=== PATIENT | female | born 1965 | race Caucasian/White ===

== ENCOUNTER 2017-10-27 10:13 | Emergency (ER) | payer OTHER ==
[~2017-10-27 10:13] MED LIST: LORA-474 PO; PREM0.622 PO; PROM25SU8 PO; PROZ40CA PO
[2017-10-27 11:15] VITALS: BP 153/67; PULSE 84; RESP 16; TEMP 97.7; O2SAT 98
[2017-10-27 11:45] LABS: AUTOMATED NEUTROPHIL # 3.6 TH/MM3 (1.8-7.7); BASOPHIL % 0.8 % (0.0-2.0); EOSINOPHIL # 0.1 TH/MM3 (0-0.4); EOSINOPHIL % 1.5 % (0.0-4.0); HEMATOCRIT 39.8 % (35.0-46.0); HEMOGLOBIN 13.6 GM/DL (11.6-15.3); LYMPHOCYTE # 1.5 TH/MM3 (1.0-4.8); MEAN CELL VOLUME 90.6 FL (80.0-100.0); MEAN CORPUSCULAR HEMOGLOBIN 30.9 PG (27.0-34.0); MEAN CORPUSCULAR HGB CONC 34.1 % (32.0-36.0); MEAN PLATELET VOLUME 7.9 FL (7.0-11.0); MONO % 4.1 % (0.0-8.0); MONOCYTE # 0.2 TH/MM3 (0-0.9); NEUT % 65.6 % (16.0-70.0); PLATELET COUNT 367 TH/MM3 (150-450); RED BLOOD COUNT 4.39 MIL/MM3 (4.00-5.30); WHITE BLOOD COUNT 5.4 TH/MM3 (4.0-11.0)
[2017-10-27 11:56] LABS: PROTHROMBIN TIME - PATIENT 10.4 SEC (9.8-11.6)
[2017-10-27] MEDS ORDERED: SODIUM CHLOR 0.9% 1000 ML INJ 1,000 ML IV SCH (12:00)
[2017-10-27] MEDS ORDERED: HYDROmorphone HCL PF 2 MG/ML VIAL IV PUSH ONE ×2 (12:00→13:45)
[2017-10-27] MEDS ORDERED: ONDANSETRON HCL 4 MG/2 ML VIAL IV PUSH ONE (12:00)
[2017-10-27 12:02] LABS: BACTERIA, URINE FEW /hpf; BILIRUBIN, URINE NEG (NEG); BLOOD, URINE NEG (NEG); GLUCOSE,URINE NEG (NEG); KETONE, URINE 40 mg/dL (NEG); MUCUS URINE FEW /lpf (OCC); NITRITE,URINE NEG (NEG); PH, URINE 5.5 (5.0-8.5); SQUAMOUS EPITHELIAL CELL URINE 2 /hpf (0-5); URINE COLOR YELLOW (YELLW/STRAW); URINE LEUKOCYTE ESTERASE NEG (NEG)
--- NOTE | 2017-10-27 12:02 | PD ---
HPI Chief Complaint: Abdominal Pain Time Seen by Provider: 11:50 Travel History International Travel<30 days: No Contact w/Intl Traveler<30days: No Traveled to known affect area: No History of Present Illness HPI 52-year-old female complains up fever, left lower quadrant abdominal pain, nausea vomiting diarrhea. Patient has history of diverticulitis in the past. Patient states that she started having abdominal pain 4 days ago. Patient stated the pain is sharp pain localized left lower quadrant of the abdomen. Patient denies any pain radiation. Patient states that she is having fever for the past 2 days. Patient denies any dysuria frequency. Patient denies any vaginal discharge or bleeding. Patient status post hysterectomy and appendectomy. On a scale of 1-10 the pain is an 8. PFSH Past Medical History Anxiety: Yes Depression: Yes Cardiovascular Problems: Yes Diminished Hearing: No Diverticulitis: Yes GERD: Yes Genitourinary: Yes (INTERSTITIAL CYSTITIS ) Hypertension: Yes Medical other: Yes (CHRONIC PAIN) Ulcer: Yes Tetanus Vaccination: < 5 Years Influenza Vaccination: Yes ?: Not Menopausal: Yes Past Surgical History Appendectomy: Yes Gynecologic Surgery: Yes (MULTIPLE LAPORASCOPIC SURGERIES FOR ENDOMETRIOSIS PRIOR TO HYST) Hysterectomy: Yes (PARTIAL / TOTAL) Social History Alcohol Use: Yes (OCCASIONALLY) Tobacco Use: No Substance Use: No Allergies-Medications (Allergen,Severity, Reaction): Coded Allergies: diatrizoate meglumine (Unverified Allergy, Severe, ANAPHYLASIS, 10/27/17) gadobenic acid (Unverified Allergy, Severe, ANAPHYLASIS, 10/27/17) gadodiamide (Unverified Allergy, Severe, ANAPHYLASIS, 10/27/17) gadoteridol (Unverified Allergy, Severe, ANAPHYLASIS, 10/27/17) iodixanol (Unverified Allergy, Severe, ANAPHYLASIS, 10/27/17) iohexol (Unverified Allergy, Severe, ANAPHYLASIS, 10/27/17) moxifloxacin (Verified Allergy, Severe, Seizures, 10/27/17) penicillin G (Unverified Allergy, Severe, HIVES, 10/27/17) triamcinolone (Verified Allergy, Severe, Burning, 10/27/17) adhesive (Verified Allergy, Intermediate, Itching, 10/27/17) morphine (Unverified Allergy, Intermediate, HIVES, 10/27/17) metoclopramide (Unverified Allergy, Mild, NERVOUSNESS, 10/27/17) prochlorperazine (Unverified Allergy, Mild, NERVOUSNESS, 10/27/17) promethazine (Unverified Allergy, Mild, VOMITING, 10/27/17) Iodinated Contrast- Oral and IV Dye (Verified Allergy, Unknown, 10/27/17) ketorolac (Verified Allergy, Unknown, 10/27/17) Reported Meds & Prescriptions Reported Meds & Active Scripts Active Reported Percocet (Oxycodone-Acetaminophen) 10-325 mg Tab 1 Tab PO Q6H PRN Lexapro (Escitalopram Oxalate) 20 Mg Tab 20 Mg PO DAILY Nexium (Esomeprazole DR) 40 Mg Capdr 40 Mg PO DAILY Ativan (Lorazepam) 1 Mg Tab 1 Mg PO Q8H PRN Premarin (Estrogens Conjugated) 0.625 Mg Tab 0.625 Mg PO DAILY Cardizem CD 24 HR (Diltiazem CD 24 HR) 120 Mg Caper 120 Mg PO DAILY Review of Systems General / Constitutional: No: Fever Eyes: No: Visual changes HENT: No: Headaches Cardiovascular: No: Chest Pain or Discomfort Respiratory: No: Shortness of Breath Gastrointestinal: Positive: Nausea, Vomiting, Diarrhea, Abdominal Pain Genitourinary: No: Dysuria Musculoskeletal: No: Pain Skin: No Rash Neurologic: No: Weakness Psychiatric: No: Depression Endocrine: No: Polydipsia Hematologic/Lymphatic: No: Easy Bruising Physical Exam Narrative GENERAL: Well-nourished, well-developed patient. SKIN: Focused skin assessment warm/dry. HEAD: Normocephalic. EYES: No scleral icterus. No injection or drainage. NECK: Supple, trachea midline. No JVD or lymphadenopathy. CARDIOVASCULAR: Regular rate and rhythm without murmurs, gallops, or rubs. RESPIRATORY: Breath sounds equal bilaterally. No accessory muscle use. GASTROINTESTINAL: Abdomen soft, nondistended. Patient has moderate tenderness on palpation on the left lower quadrant of the abdomen. No rebound tenderness. No mass. MUSCULOSKELETAL: No cyanosis, or edema. BACK: Nontender without obvious deformity. No CVA tenderness. Neurologic exam normal. Data Data Last Documented VS Vital Signs Date Time Temp Pulse Resp B/P (MAP) Pulse Ox O2 Delivery O2 Flow Rate FiO2 10/27/17 11:15 97.7 84 16 153/67 (95) 98 Orders Orders Complete Blood Count With Diff (10/27/17 11:18) Comprehensive Metabolic Panel (10/27/17 11:18) Lipase (10/27/17 11:18) Prothrombin Time / Inr (Pt) (10/27/17 11:18) Act Partial Throm Time (Ptt) (10/27/17 11:18) Urinalysis - C+S If Indicated (10/27/17 11:18) Ed Urine Pregnancytest Poc (10/27/17 11:18) Sodium Chlor 0.9% 1000 Ml Inj (Ns 1000 M (10/27/17 12:00) Hydromorphone Pf Inj (Dilaudid Pf Inj) (10/27/17 12:00) Ondansetron Inj (Zofran Inj) (10/27/17 12:00) Iv Access Insert/Monitor (10/27/17 11:58) Ct Abd/Pel W/O Iv Contrast (10/27/17 13:32) Hydromorphone Pf Inj (Dilaudid Pf Inj) (10/27/17 13:45) Labs Laboratory Tests Test 10/27/17 11:27 White Blood Count 5.4 TH/MM3 Red Blood Count 4.39 MIL/MM3 Hemoglobin 13.6 GM/DL Hematocrit 39.8 % Mean Corpuscular Volume 90.6 FL Mean Corpuscular Hemoglobin 30.9 PG Mean Corpuscular Hemoglobin Concent 34.1 % Red Cell Distribution Width 13.0 % Platelet Count 367 TH/MM3 Mean Platelet Volume 7.9 FL Neutrophils (%) (Auto) 65.6 % Lymphocytes (%) (Auto) 28.0 % Monocytes (%) (Auto) 4.1 % Eosinophils (%) (Auto) 1.5 % Basophils (%) (Auto) 0.8 % Neutrophils # (Auto) 3.6 TH/MM3 Lymphocytes # (Auto) 1.5 TH/MM3 Monocytes # (Auto) 0.2 TH/MM3 Eosinophils # (Auto) 0.1 TH/MM3 Basophils # (Auto) 0.0 TH/MM3 CBC Comment DIFF FINAL Differential Comment Prothrombin Time 10.4 SEC Prothromb Time International Ratio 1.0 RATIO Activated Partial Thromboplast Time 28.3 SEC Urine Color YELLOW Urine Turbidity HAZY Urine pH 5.5 Urine Specific [place] 1.025 Urine Protein TRACE mg/dL Urine Glucose (UA) NEG mg/dL Urine Ketones 40 mg/dL Urine Occult Blood NEG Urine Nitrite NEG Urine Bilirubin NEG Urine Urobilinogen LESS THAN 2.0 MG/DL Urine Leukocyte Esterase NEG Urine RBC 2 /hpf Urine WBC 2 /hpf Urine Squamous Epithelial Cells 2 /hpf Urine Bacteria FEW /hpf Urine Mucus FEW /lpf Microscopic Urinalysis Comment CULT NOT INDICATED Blood Urea Nitrogen 18 MG/DL Creatinine 0.75 MG/DL Random Glucose 92 MG/DL Total Protein 9.2 GM/DL Albumin 4.9 GM/DL Calcium Level 9.5 MG/DL Alkaline Phosphatase 69 U/L Aspartate Amino Transf (AST/SGOT) 13 U/L Alanine Aminotransferase (ALT/SGPT) 17 U/L Total Bilirubin 0.5 MG/DL Sodium Level 133 MEQ/L Potassium Level 3.7 MEQ/L Chloride Level 100 MEQ/L Carbon Dioxide Level 26.0 MEQ/L Anion Gap 7 MEQ/L Estimat Glomerular Filtration Rate 82 ML/MIN Lipase 167 U/L [facility] Medical Decision Making Medical Screen Exam Complete: Yes Emergency Medical Condition: Yes Interpretation(s) 1335 PM. CBC within normal limits. Sodium 133. CMP otherwise within normal limits. UA is negative. Differential Diagnosis Differential diagnosis including acute diverticulitis, UTI, pyelonephritis, nephrolithiasis. Narrative Course 52-year-old female with left lower quadrant abdominal pain. History of diverticulitis in the past. Dilaudid 0.5 mg IV. Zofran 4 mg IV. Normal saline solution 1 25 cc an hour. Repeat Dilaudid 1 mg IV. Diagnosis Primary Impression: Abdominal pain Qualified Codes: R10.32 - Left lower quadrant pain Patient Instructions: General Instructions Additional Instructions: Take medication as needed for pain. Follow-up with personal physician and GI specialist. Return if worse. Med/Other Pt SpecificInfo: Prescription(s) given Scripts Dicyclomine (Bentyl) 10 Mg Cap 10 MG PO TID Y for Bowel Management, #21 CAP 0 Refills Prov: Lew Weiner MD 10/27/17 Disposition: 01 DISCHARGE HOME Condition: Stable Lew Weiner MD Oct 27, 2017 12:02
[2017-10-27 12:05] LABS: ALBUMIN 4.9 GM/DL (3.4-5.0); AST (GOT) 13 U/L (15-37); BLOOD UREA NITROGEN 18 MG/DL (7-18); CALCIUM 9.5 MG/DL (8.5-10.1); CHLORIDE 100 MEQ/L (98-107); CREATININE 0.75 MG/DL (0.50-1.00); GLOMERULAR FILTRATION RATE 82 ML/MIN (>89); GLUCOSE,RANDOM 92 MG/DL (74-106); SODIUM (NA) 133 MEQ/L (136-145)
[2017-10-27 12:07] LABS: ALT (GPT) 17 U/L (10-53)
[2017-10-27 12:09] LABS: ALKALINE PHOSPHATASE 69 U/L (45-117); TOTAL BILIRUBIN ADULT 0.5 MG/DL (0.2-1.0); TOTAL PROTEIN 9.2 GM/DL (6.4-8.2)
[2017-10-27] MEDS ORDERED: CARD120C4 PO ×2 (12:54)
[2017-10-27] MEDS ORDERED: LORA-474 PO (12:54)
[2017-10-27] MEDS ORDERED: NEXI40CA PO ×2 (12:54)
[2017-10-27] MEDS ORDERED: LEXA20TA PO ×2 (12:54)
[2017-10-27] MEDS ORDERED: PERC10TA27 PO ×2 (12:54)
[2017-10-27] MEDS ORDERED: ESTR.625 PO ×2 (12:54)
--- NOTE | 2017-10-27 14:46 | RADRPT ---
EXAM DATE/TIME: 10/27/2017 13:59 [facility] COMPARISON: No previous studies available for comparison. INDICATIONS : Left upper quadrant pain, nausea, vomiting, diarrhea. ORAL CONTRAST: No oral contrast ingested. RADIATION DOSE: 6.57 CTDIvol (mGy) MEDICAL HISTORY : Hypertension. Diverticulitis. Gastroesophageal reflux disease.Ulcers SURGICAL HISTORY : Appendectomy. Hysterectomy. Laporascopic surgery for endometriosis ENCOUNTER: Initial ACUITY: 1 day PAIN SCALE: 9/10 LOCATION: Left upper quadrant TECHNIQUE: Volumetric scanning of the abdomen and pelvis was performed. Using automated exposure control and ad justment of the mA and/or kV according to patient size, radiation dose was kept as low as reasonably achievable to obtain optimal diagnostic quality images. DICOM format image data is available electro nically for review and comparison. FINDINGS: LOWER LUNGS: There is a tiny calcified granuloma in the left lower lobe. Otherwise, the visualized lower lungs are clear. LIVER: Homogeneous density without lesion. There is no dilation of the biliary tree. No calcified gallston es. SPLEEN: Normal size without lesion. PANCREAS: Within normal limits. KIDNEYS: Normal in size and shape. There is no mass, stone, or hydronephrosis. ADRENAL GLANDS: Within normal limits. VASCULAR: There is no aortic aneurysm. BOWEL/MESENTERY: The stomach, small bowel, and colon demonstrate no acute abnormality. There is no free intraperitone al air or fluid. ABDOMINAL WALL: Within normal limits. RETROPERITONEUM: There is no lymphadenopathy. BLADDER: No wall thickening or mass. REPRODUCTIVE: Uterus is absent. No adnexal abnormality is visualized. INGUINAL: There is no lymphadenopathy or hernia. MUSCULOSKELETAL: No acute abnormality is identified. CONCLUSION: No abnormality is identified to explain the left lower quadrant pain. No acute finding is identified within the abdomen or pelvis on this noncontrast examination. Len St MD on October 27, 2017 at 14:41 Board Certified Radiologist. This report was verified electronically.
[2017-10-27 14:49] VITALS: BP 124/59; PULSE 90; RESP 18; O2SAT 99
[2017-10-27] MEDS ORDERED: DICY10 PO (15:07)
[2017-10-28] MEDS ORDERED: LORA-474 PO ×2 (11:40)
== END 2017-10-27 16:11 | disposition home or self-care (01) ==
LOC: NEPD 10:13
DX: R10.32 Left lower quadrant pain (principal); K21.9 Gastro-esophageal reflux disease without esophagitis; I10 Essential (primary) hypertension; F41.9 Anxiety disorder, unspecified; F32.9 Major depressive disorder, single episode, unspecified
CPT/HCPCS: 74176; 80053; 81001; 83690; 84703; 85025; 85610; 85730; 96361; 96374; 96375; 96376; 99284; J1170; J2405; J7030

== ENCOUNTER 2017-10-28 09:37 | Observation (INO) | payer OTHER ==
[~2017-10-28] VITALS: Ht 162.6 cm; Wt 61.0 kg
[~2017-10-28 09:37] MED LIST changes: +CARD120C4 PO; +DICY10 PO; +ESTR.625 PO; +LEXA20TA PO; +NEXI40CA PO; +PERC10TA27 PO
[2017-10-28 09:44] VITALS: BP 115/66; PULSE 86; RESP 18; TEMP 98; O2SAT 97
[2017-10-28] MEDS ORDERED: SODIUM CHLOR 0.9% 1000 ML INJ 1,000 ML IV ONE (10:00)
[2017-10-28] MEDS ORDERED: ONDANSETRON HCL 4 MG/2 ML VIAL IV PUSH ONE ×2 (10:00→13:45)
--- NOTE | 2017-10-28 10:15 | PD ---
HPI Chief Complaint: Abdominal Pain Time Seen by Provider: 09:54 Travel History International Travel<30 days: No Contact w/Intl Traveler<30days: No Traveled to known affect area: No History of Present Illness HPI 52 y/o female presents with persistent abdominal pain and now having nonbloody emesis. She states that she does not have a local doctor here so she came here to get rechecked. She states she is not having any other symptoms at this time. Quality is sharp. It is intermittent in nature. Severity is moderate. She denies any migration of the pain. Location is diffuse. Duration is over the past couple of days with ER visit yesterday. PFSH Past Medical History Anxiety: Yes Depression: Yes Cardiovascular Problems: Yes (HTN) Diminished Hearing: No Diverticulitis: Yes GERD: Yes Genitourinary: Yes (INTERSTITIAL CYSTITIS ) Hypertension: Yes Ulcer: Yes ?: Not Menopausal: Yes Past Surgical History Appendectomy: Yes Gynecologic Surgery: Yes (MULTIPLE LAPORASCOPIC SURGERIES FOR ENDOMETRIOSIS PRIOR TO HYST) Hysterectomy: Yes Social History Alcohol Use: Yes (OCCASIONALLY) Tobacco Use: No Substance Use: No Allergies-Medications (Allergen,Severity, Reaction): Coded Allergies: diatrizoate meglumine (Unverified Allergy, Severe, ANAPHYLASIS, 10/28/17) gadobenic acid (Unverified Allergy, Severe, ANAPHYLASIS, 10/28/17) gadodiamide (Unverified Allergy, Severe, ANAPHYLASIS, 10/28/17) gadoteridol (Unverified Allergy, Severe, ANAPHYLASIS, 10/28/17) iodixanol (Unverified Allergy, Severe, ANAPHYLASIS, 10/28/17) iohexol (Unverified Allergy, Severe, ANAPHYLASIS, 10/28/17) moxifloxacin (Verified Allergy, Severe, Seizures, 10/28/17) penicillin G (Unverified Allergy, Severe, HIVES, 10/28/17) triamcinolone (Verified Allergy, Severe, Burning, 10/28/17) adhesive (Verified Allergy, Intermediate, Itching, 10/28/17) morphine (Unverified Allergy, Intermediate, HIVES, 10/28/17) metoclopramide (Unverified Allergy, Mild, NERVOUSNESS, 10/28/17) prochlorperazine (Unverified Allergy, Mild, NERVOUSNESS, 10/28/17) promethazine (Unverified Allergy, Mild, VOMITING, 10/28/17) Iodinated Contrast- Oral and IV Dye (Verified Allergy, Unknown, 10/28/17) ketorolac (Verified Allergy, Unknown, 10/28/17) Reported Meds & Prescriptions Reported Meds & Active Scripts Active Bentyl (Dicyclomine HCl) 10 Mg Cap 10 Mg PO TID PRN Reported Percocet (Oxycodone-Acetaminophen) 10-325 mg Tab 1 Tab PO Q6H PRN Lexapro (Escitalopram Oxalate) 20 Mg Tab 20 Mg PO DAILY Nexium (Esomeprazole DR) 40 Mg Capdr 40 Mg PO DAILY Ativan (Lorazepam) 1 Mg Tab 1 Mg PO Q8H PRN Premarin (Estrogens Conjugated) 0.625 Mg Tab 0.625 Mg PO DAILY Cardizem CD 24 HR (Diltiazem CD 24 HR) 120 Mg Caper 120 Mg PO DAILY Review of Systems Except as stated in HPI: all other systems reviewed are Neg Physical Exam Narrative GENERAL: 52-year-old female in no apparent distress SKIN: Focused skin assessment warm/dry. HEAD: Atraumatic. Normocephalic. EYES: Pupils equal and round. No scleral icterus. No injection or drainage. ENT: No nasal bleeding or discharge. Mucous membranes pink and moist. NECK: Trachea midline. No JVD. CARDIOVASCULAR: Regular rate and rhythm. RESPIRATORY: No accessory muscle use. No increased effort GASTROINTESTINAL: Abdomen soft, mild tenderness diffusely, nondistended. No rebound MUSCULOSKELETAL: No obvious deformities. No clubbing. No cyanosis. No edema. NEUROLOGICAL: Awake and alert. Motor grossly within normal limits. Normal speech. PSYCHIATRIC: Appropriate mood and affect; insight and judgment normal. Data Data Last Documented VS Vital Signs Date Time Temp Pulse Resp B/P (MAP) Pulse Ox O2 Delivery O2 Flow Rate FiO2 10/28/17 09:44 98.0 86 18 115/66 (82) 97 Orders Orders Complete Blood Count With Diff (10/28/17 10:00) Comprehensive Metabolic Panel (10/28/17 10:00) Urinalysis - C+S If Indicated (10/28/17 10:00) Lipase (10/28/17 10:00) Iv Access Insert/Monitor (10/28/17 10:00) Ondansetron Inj (Zofran Inj) (10/28/17 10:00) Sodium Chlor 0.9% 1000 Ml Inj (Ns 1000 M (10/28/17 10:00) Urine Culture (10/28/17 10:40) Morphine Inj (Morphine Inj) (10/28/17 11:15) Us Abdomen Gallbladder (10/28/17 ) Place In Observation (10/28/17 ) Vital Signs (Adult) CHAVEZ.Q4H (10/28/17 11:31) Activity Oob With Assistance (10/28/17 11:31) Diltiazem Cd (Cardizem Cd) (10/29/17 09:00) Escitalopram (Lexapro) (10/29/17 09:00) Admit Order (Ed Use Only) (10/28/17 11:32) Labs Laboratory Tests Test 10/28/17 10:40 White Blood Count 3.9 TH/MM3 Red Blood Count 3.96 MIL/MM3 Hemoglobin 11.6 GM/DL Hematocrit 35.6 % Mean Corpuscular Volume 89.9 FL Mean Corpuscular Hemoglobin 29.2 PG Mean Corpuscular Hemoglobin Concent 32.5 % Red Cell Distribution Width 12.1 % Platelet Count 337 TH/MM3 Mean Platelet Volume 8.3 FL Neutrophils (%) (Auto) 58.9 % Lymphocytes (%) (Auto) 30.9 % Monocytes (%) (Auto) 5.8 % Eosinophils (%) (Auto) 2.8 % Basophils (%) (Auto) 1.6 % Neutrophils # (Auto) 2.3 TH/MM3 Lymphocytes # (Auto) 1.2 TH/MM3 Monocytes # (Auto) 0.2 TH/MM3 Eosinophils # (Auto) 0.1 TH/MM3 Basophils # (Auto) 0.1 TH/MM3 CBC Comment DIFF FINAL Differential Comment Urine Collection Type CLEAN CATCH Urine Color YELLOW Urine Turbidity CLEAR Urine pH 5.5 Urine Specific [place] 1.022 Urine Protein NEG mg/dL Urine Glucose (UA) NEG mg/dL Urine Ketones NEG mg/dL Urine Occult Blood NEG Urine Nitrite NEG Urine Bilirubin NEG Urine Leukocyte Esterase NEG Urine RBC 0-3 /hpf Urine WBC 3-5 /hpf Urine Squamous Epithelial Cells 0-5 /hpf Urine Amorphous Sediment FEW Urine Bacteria MOD /hpf Microscopic Urinalysis Comment CULTURE INDICATED Urine Collection Time 1040 Blood Urea Nitrogen 16 MG/DL Creatinine 0.72 MG/DL Random Glucose 99 MG/DL Total Protein 8.1 GM/DL Albumin 4.0 GM/DL Calcium Level 8.3 MG/DL Alkaline Phosphatase 57 U/L Aspartate Amino Transf (AST/SGOT) 19 U/L Alanine Aminotransferase (ALT/SGPT) 17 U/L Total Bilirubin 0.6 MG/DL Sodium Level 140 MEQ/L Potassium Level 4.0 MEQ/L Chloride Level 105 MEQ/L Carbon Dioxide Level 27.7 MEQ/L Anion Gap 7 MEQ/L Estimat Glomerular Filtration Rate 86 ML/MIN Lipase 1221 U/L [facility] Medical Decision Making Medical Screen Exam Complete: Yes Emergency Medical Condition: Yes Medical Record Reviewed: Yes (pmh confirmed) Interpretation(s) CBC & BMP Diagram 10/28/17 10:40 Total Protein 8.1 #, Albumin 4.0 #, Calcium Level 8.3 #L, Alkaline Phosphatase 57, Aspartate Amino Transf (AST/SGOT) 19, Alanine Aminotransferase (ALT/SGPT) 17 , Total Bilirubin 0.6 Differential Diagnosis pancreatitis, uti, gastroenteritis..... Narrative Course will recheck labs, ua and dose with ivf and zofran and reeval given elevated lipase, will add on gallbladder ultrasound and dose with morphine and admit for observation Physician Communication Physician Communication dr brown agrees to admit Diagnosis Primary Impression: Pancreatitis Qualified Codes: K85.90 - Acute pancreatitis without necrosis or infection, unspecified Admitting Information Admitting Physician Requests: Observation Libia Blair MD Oct 28, 2017 10:15
[2017-10-28 10:48] LABS: AUTOMATED NEUTROPHIL # 2.3 TH/MM3 (1.8-7.7); BASOPHIL # 0.1 TH/MM3 (0-0.2); BASOPHIL % 1.6 % (0.0-2.0); EOSINOPHIL # 0.1 TH/MM3 (0-0.4); EOSINOPHIL % 2.8 % (0.0-4.0); HEMATOCRIT 35.6 % (35.0-46.0); HEMOGLOBIN 11.6 GM/DL (11.6-15.3); LYMPH % 30.9 % (9.0-44.0); LYMPHOCYTE # 1.2 TH/MM3 (1.0-4.8); MEAN CELL VOLUME 89.9 FL (80.0-100.0); MEAN CORPUSCULAR HEMOGLOBIN 29.2 PG (27.0-34.0); MEAN CORPUSCULAR HGB CONC 32.5 % (32.0-36.0); MEAN PLATELET VOLUME 8.3 FL (7.0-11.0); MONO % 5.8 % (0.0-8.0); MONOCYTE # 0.2 TH/MM3 (0-0.9); NEUT % 58.9 % (16.0-70.0); PLATELET COUNT 337 TH/MM3 (150-450); RED BLOOD COUNT 3.96 MIL/MM3 (4.00-5.30); RED CELL DISTRIBUTION WIDTH 12.1 % (11.6-17.2); WHITE BLOOD COUNT 3.9 TH/MM3 (4.0-11.0)
[2017-10-28 10:49] LABS: BILIRUBIN, URINE NEG (NEG); BLOOD, URINE NEG (NEG); GLUCOSE,URINE NEG (NEG); KETONE, URINE NEG (NEG); NITRITE,URINE NEG (NEG); PH, URINE 5.5 (5.0-8.5); URINE LEUKOCYTE ESTERASE NEG (NEG)
[2017-10-28 10:54] LABS: URINE COLOR YELLOW (YELLW/STRAW)
[2017-10-28 10:55] LABS: AMORPHOUS SEDIMENT, URINE FEW; BACTERIA, URINE MOD /hpf; RBC, URINE 0-3 /hpf (0-3); SQUAMOUS EPITHELIAL CELL URINE 0-5 /hpf (0-5)
[2017-10-28 10:56] LABS: CHLORIDE 105 MEQ/L (98-107); SODIUM (NA) 140 MEQ/L (136-145)
[2017-10-28 11:00] LABS: BICARBONATE 27.7 MEQ/L (21.0-32.0); CALCIUM 8.3 MG/DL (8.5-10.1); GLUCOSE,RANDOM 99 MG/DL (74-106)
[2017-10-28 11:01] LABS: BLOOD UREA NITROGEN 16 MG/DL (7-18)
[2017-10-28 11:03] LABS: ALT (GPT) 17 U/L (10-53); AST (GOT) 19 U/L (15-37); CREATININE 0.72 MG/DL (0.50-1.00); GLOMERULAR FILTRATION RATE 86 ML/MIN (>89)
[2017-10-28 11:05] LABS: TOTAL BILIRUBIN ADULT 0.6 MG/DL (0.2-1.0); TOTAL PROTEIN 8.1 GM/DL (6.4-8.2)
[2017-10-28 11:06] LABS: ALKALINE PHOSPHATASE 57 U/L (45-117)
[2017-10-28] MEDS ORDERED: MORPHINE SULFATE 4 MG/ML INJ IV PUSH ONE (11:15)
[2017-10-28] MEDS ORDERED: LORA-474 PO ×2 (11:40)
[2017-10-28] MEDS ORDERED: diphenhydrAMINE HCL 25 MG CAP PO ONE (11:45)
[2017-10-28 12:29] VITALS: BP 125/77
[2017-10-28 13:00] VITALS: BP 132/75; PULSE 57; RESP 16; TEMP 97.2; O2SAT 98
[2017-10-28] MEDS ORDERED: MORPHINE SULFATE 4 MG/ML INJ IV PUSH PRN (13:45)
--- NOTE | 2017-10-28 14:02 | RADRPT ---
EXAM DATE/TIME: 10/28/2017 13:10 [facility] COMPARISON: CT ABDOMEN & PELVIS W/O CONTRAST, October 27, 2017, 13:59. INDICATIONS : Nausea.Vomiting. MEDICAL HISTORY : Hypertension. Diverticulitis. Ulcer. GERD. Intersitial cystitis. Depression. SURGICAL HISTORY : Appendectomy. Hysterectomy. Laporascopy. ENCOUNTER: Initial ACUITY: 1 day PAIN SCORE: 4/10 LOCATION: Right upper quadrant MEASUREMENTS: LIVER: 17.8 cm length COMMON DUCT: 3 mm RIGHT KIDNEY: 11.0 x 4.4 x 5.5 cm FINDINGS: LIVER: Normal echotexture without focal lesion or ductal dilatation. COMMON DUCT: No intraluminal mass or stone visualized. GALLBLADDER: Contains no stones, demonstrates no wall thickening or pericholecystic fluid. PANCREAS: The visualized portions are within normal limits. RIGHT KIDNEY: No evidence of hydronephrosis, stone, or mass. CONCLUSION: Normal gallbladder ultrasound. No acute finding is identified. Len St MD on October 28, 2017 at 14:00 Board Certified Radiologist. This report was verified electronically.
[2017-10-28] MEDS ORDERED: SODIUM CHLORIDE 0.9% FLUSH 10 ML FLUSH IV FLUSH PRN (14:15)
[2017-10-28] MEDS: HYDROmorphone HCL PF 2 MG/ML VIAL IV PUSH PRN ×2 (14:23→17:16)
[2017-10-28] MEDS: SODIUM CHLOR 0.9% 1000 ML INJ 1,000 ML IV SCH ×2 (14:26→20:37)
[2017-10-28 16:00] VITALS: BP 129/86; PULSE 68; RESP 16; TEMP 96.9; O2SAT 100
--- NOTE | 2017-10-28 17:05 | HHI.HP ---
[facility] Service [facility] Primary Care Physician Non-Staff Admission Diagnosis pancreatitis Diagnoses: (1) Abdominal pain Diagnosis: Principal (2) Nausea & vomiting Diagnosis: Principal (3) Elevated lipase Diagnosis: Principal Chief Complaint: Abdominal pain with nausea vomiting Travel History International Travel<30 Days: No Contact w/Intl Traveler <30 Da: No Traveled to Known Affected Are: No History of Present Illness 52-year-old, year-old female with chronic abdominal pain, hypertension , endometriosis, irritable bowel syndrome, gastroesophageal reflux who came back to the emergency department because of nausea and vomiting. The patient lives in [place] and has been down here the last 2 months taking care of her father. Patient was seen in emergency department yesterday and had full workup with laboratory studies, CT scans with out any abnormal findings. Patient was discharged home with Carlos. Patient states that she is been having problems with nausea and vomiting so she came back to emergency department today. Patient was found to have an elevated lipase level and the ER physician recommended patient be observed in the hospital for further recommendations. Gallbladder ultrasound was performed which was unremarkable. At time evaluating the patient she has difficulty describing the pain. She indicates that is been going on for 4-5 days. It is a diffuse abdominal pain where she points to different areas her abdomen with radiation into her left flank. She states that she has had 2 days of nausea and vomiting. Patient states that she has only been eating like peanut butter and jelly. Prior to her illness she did have some chicken breast that she cut herself. She denies any sick contacts. She does [id number] bowel syndrome with constipation and diarrhea. She states that she has had stools of soft serve consistency. Patient appears to be in no acute distress. No significant discomfort on palpation. As indicated that she cannot take morphine because she gets a rash and itching. The only pain medication that she can use is Dilaudid. Review of Systems Gastrointestinal: COMPLAINS OF: Abdominal pain, Diarrhea, Nausea, Vomiting Except as stated in HPI: all other systems reviewed are Neg Past Family Social History Past Medical History Hypertension Chronic pain Irritable bowel syndrome Gastroesophageal reflux Endometriosis Past Surgical History Hysterectomy Appendectomy Multiple exploratory laparoscopies Reported Medications Reported Meds & Active Scripts Active Reported Ativan (Lorazepam) 1 Mg Tab 1 Mg PO Q8H PRN Percocet (Oxycodone-Acetaminophen) 10-325 mg Tab 1 Tab PO Q6H PRN Lexapro (Escitalopram Oxalate) 20 Mg Tab 20 Mg PO DAILY Nexium (Esomeprazole DR) 40 Mg Capdr 40 Mg PO DAILY Premarin (Estrogens Conjugated) 0.625 Mg Tab 0.625 Mg PO DAILY Cardizem CD 24 HR (Diltiazem CD 24 HR) 120 Mg Caper 120 Mg PO DAILY Allergies: Coded Allergies: diatrizoate meglumine (Unverified Allergy, Severe, ANAPHYLASIS, 10/28/17) gadobenic acid (Unverified Allergy, Severe, ANAPHYLASIS, 10/28/17) gadodiamide (Unverified Allergy, Severe, ANAPHYLASIS, 10/28/17) gadoteridol (Unverified Allergy, Severe, ANAPHYLASIS, 10/28/17) iodixanol (Unverified Allergy, Severe, ANAPHYLASIS, 10/28/17) iohexol (Unverified Allergy, Severe, ANAPHYLASIS, 10/28/17) moxifloxacin (Verified Allergy, Severe, Seizures, 10/28/17) penicillin G (Unverified Allergy, Severe, HIVES, 10/28/17) triamcinolone (Verified Allergy, Severe, Burning, 10/28/17) adhesive (Verified Allergy, Intermediate, Itching, 10/28/17) metoclopramide (Unverified Allergy, Mild, NERVOUSNESS, 10/28/17) prochlorperazine (Unverified Allergy, Mild, NERVOUSNESS, 10/28/17) promethazine (Unverified Allergy, Mild, VOMITING, 10/28/17) Iodinated Contrast- Oral and IV Dye (Verified Allergy, Unknown, 10/28/17) ketorolac (Verified Allergy, Unknown, 10/28/17) morphine (Unverified Adverse Reaction, Intermediate, HIVES, 10/28/17) Family History Reviewed is significant for mother with stroke and COPD. Father still alive at age 87 with atrial fibrillation, diabetes. Brother with diabetes Physical Exam Vital Signs Vital Signs Date Time Temp Pulse Resp B/P (MAP) Pulse Ox O2 Delivery O2 Flow Rate FiO2 10/28/17 14:53 18 10/28/17 13:00 97.2 57 16 132/75 (94) 98 10/28/17 12:29 65 16 125/77 (93) 100 10/28/17 12:19 16 10/28/17 09:44 98.0 86 18 115/66 (82) 97 Physical Exam GENERAL: Well-developed, well-nourished, in no acute distress. alert and orientated HEENT: Head is normocephalic without any lesions or masses noted. Facial features are symmetric. Eyes: Pupils equal round reactive to light. Extraocular muscles are intact. Conjunctivae were clear. Oropharyngeal: Pharynx without any erythema edema. Tongue is midline without deviation. Buccal mucosa is moist without any masses or lesions NECK: Supple without any masses. Trachea midline no deviation. No JVD, no bruits are appreciated CARDIAC: Regular rhythm, regular rate. S1/S2 are heard. No murmurs gallops or rubs. LUNGS: Clear to auscultation bilaterally. No wheeze, rhonchi or rales. No use of accessory muscles on inspiration or expiration. ABDOMEN: Soft, absolutely nontender. Nondistended. Bowel sounds heard in all 4 quadrants. No organomegaly or masses. Negative rebound, negative guarding EXTREMITIES: No edema, pulses are equal bilaterally. No cyanosis or clubbing NEUROLOGY: Mood and affect appear appropriate. Cranial nerves II through XII grossly intact. Muscle strength 5/5 in upper and lower extremities bilaterally. Deep tendon reflexes are 2+ in upper and lower extremities bilaterally. Laboratory Laboratory Tests Test 10/28/17 10:40 White Blood Count 3.9 Red Blood Count 3.96 Hemoglobin 11.6 Hematocrit 35.6 Mean Corpuscular Volume 89.9 Mean Corpuscular Hemoglobin 29.2 Mean Corpuscular Hemoglobin Concent 32.5 Red Cell Distribution Width 12.1 Platelet Count 337 Mean Platelet Volume 8.3 Neutrophils (%) (Auto) 58.9 Lymphocytes (%) (Auto) 30.9 Monocytes (%) (Auto) 5.8 Eosinophils (%) (Auto) 2.8 Basophils (%) (Auto) 1.6 Neutrophils # (Auto) 2.3 Lymphocytes # (Auto) 1.2 Monocytes # (Auto) 0.2 Eosinophils # (Auto) 0.1 Basophils # (Auto) 0.1 CBC Comment DIFF FINAL Differential Comment Urine Collection Type CLEAN CATCH Urine Color YELLOW Urine Turbidity CLEAR Urine pH 5.5 Urine Specific [place] 1.022 Urine Protein NEG Urine Glucose (UA) NEG Urine Ketones NEG Urine Occult Blood NEG Urine Nitrite NEG Urine Bilirubin NEG Urine Leukocyte Esterase NEG Urine RBC 0-3 Urine WBC 3-5 Urine Squamous Epithelial Cells 0-5 Urine Amorphous Sediment FEW Urine Bacteria MOD Microscopic Urinalysis Comment CULTURE INDICATED Urine Collection Time 1040 Blood Urea Nitrogen 16 Creatinine 0.72 Random Glucose 99 Total Protein 8.1 Albumin 4.0 Calcium Level 8.3 Alkaline Phosphatase 57 Aspartate Amino Transf (AST/SGOT) 19 Alanine Aminotransferase (ALT/SGPT) 17 Total Bilirubin 0.6 Sodium Level 140 Potassium Level 4.0 Chloride Level 105 Carbon Dioxide Level 27.7 Anion Gap 7 Estimat Glomerular Filtration Rate 86 Triglycerides Level 119 Lipase 1221 Date/Time Source Procedure Growth Status 10/28/17 10:40 Urine Clean Catch Urine Culture Pending Received Result Diagram: 10/28/17 1040 10/28/17 1040 Imaging Last Impressions Gall Bladder Ultrasound 10/28/17 0000 Signed Impressions: Service Date/Time: Saturday, October 28, 2017 13:10 - CONCLUSION: Normal gallbladder ultrasound. No acute finding is identified. Len St MD Caprini VTE Risk Assessment Caprini VTE Risk Assessment: No/Low Risk (score <= 1) Caprini Risk Assessment Model Point Value = 1 Point Value = 2 Point Value = 3 Point Value = 5 Age 41-60 Minor surgery BMI > 25 kg/m2 Swollen legs Varicose veins or History of unexplained or recurrent spontaneous Oral contraceptives or hormone replacement Sepsis (< 1 month) Serious lung disease, including pneumonia (< 1 month) Abnormal pulmonary function Acute myocardial infarction Congestive heart failure (< 1 month) History of inflammatory bowel disease Medical patient at bed rest Age 61-74 Arthroscopic surgery Major open surgery (> 45 min) Laparoscopic surgery (> 45 min) Malignancy Confined to bed (> 72 hours) Immobilizing plaster cast Central venous access Age >= 75 History of VTE Family history of VTE Factor V Leiden Prothrombin [id number] Lupus anticoagulant Anticardiolipin antibodies Elevated serum homocysteine Heparin-induced thrombocytopenia Other congenital or acquired thrombophilia Stroke (< 1 month) Elective arthroplasty Hip, pelvis, or leg fracture Acute spinal cord injury (< 1 month) Prophylaxis Regimen Total Risk Factor Score Risk Level Prophylaxis Regimen 0-1 Low Early ambulation 2 Moderate Order ONE of the following: *Sequential Compression Device (SCD) *Heparin 5000 units SQ BID 3-4 Higher Order ONE of the following medications: *Heparin 5000 units SQ TID *Enoxaparin/Lovenox 40 mg SQ daily (WT < 150 kg, CrCl > 30 mL/min) *Enoxaparin/Lovenox 30 mg SQ daily (WT < 150 kg, CrCl > 10-29 mL/min) *Enoxaparin/Lovenox 30 mg SQ BID (WT < 150 kg, CrCl > 30 mL/min) AND/OR *Sequential Compression Device (SCD) 5 or more Highest Order ONE of the following medications: *Heparin 5000 units SQ TID (Preferred with Epidurals) *Enoxaparin/Lovenox 40 mg SQ daily (WT < 150 kg, CrCl > 30 mL/min) *Enoxaparin/Lovenox 30 mg SQ daily (WT < 150 kg, CrCl > 10-29 mL/min) *Enoxaparin/Lovenox 30 mg SQ BID (WT < 150 kg, CrCl > 30 mL/min) AND *Sequential Compression Device (SCD) Assessment and Plan Assessment and Plan Abdominal pain with nausea, vomiting, elevated lipase CT scan and ultrasound are unremarkable for any acute abnormality We'll continue IV fluids Clear liquid diet Triglyceride level is 119 Continue trend lipase level Continue pain control with Dilaudid, when tolerating by mouth will resume patient's home medications Hypertension Home medications have been continued DVT prevention sequential compression devices Ricki Mattson Oct 28, 2017 17:05
[2017-10-28] MEDS ORDERED: HYDROmorphone HCL PF 2 MG/ML VIAL IV PUSH ONE ×2 (18:30→22:00)
[2017-10-28 20:00] VITALS: BP 108/81; PULSE 69; RESP 18; TEMP 96.5; O2SAT 98
[2017-10-28] MEDS: ONDANSETRON HCL 4 MG/2 ML VIAL IV PUSH PRN (20:37)
[2017-10-28] MEDS: LORazepam 1 MG TAB PO PRN (20:41)
[2017-10-28] MEDS: SODIUM CHLORIDE 0.9% FLUSH 10 ML FLUSH IV FLUSH SCH (20:59)
[2017-10-29] VITALS: BP 107/74; PULSE 68; RESP 18; TEMP 97; O2SAT 94
[2017-10-29] MEDS: HYDROmorphone HCL PF 2 MG/ML VIAL IV PUSH PRN ×3 (01:19→07:29)
[2017-10-29] MEDS: SODIUM CHLOR 0.9% 1000 ML INJ 1,000 ML IV SCH (05:25)
[2017-10-29] MEDS: LORazepam 1 MG TAB PO PRN ×2 (07:28→15:21)
[2017-10-29] MEDS: ONDANSETRON HCL 4 MG/2 ML VIAL IV PUSH PRN ×2 (07:29→15:22)
[2017-10-29 07:50] VITALS: BP 108/61; PULSE 66; RESP 20; TEMP 96.4; O2SAT 97
--- NOTE | 2017-10-29 08:40 | HHI.DCPOC ---
Discharge Care Plan Diagnosis: (1) Abdominal pain (2) Nausea & vomiting (3) Elevated lipase Goals to Promote Your Health * To prevent worsening of your condition and complications * To maintain your health at the optimal level Directions to Meet Your Goals Take your medications as prescribed Follow your dietary instruction Follow activity as directed Keep your appointments as scheduled Take your immunizations and boosters as scheduled If your symptoms worsen call your PCP, if no PCP go to Urgent Care Center or Emergency Room Smoking is Dangerous to Your Health. Avoid second hand smoke Call the 24-hour hour crisis hotline for domestic abuse at Ricki Mattson Oct 29, 2017 08:40
[2017-10-29] MEDS ORDERED: OXYC1TAB36 PO (08:42)
[2017-10-29] MEDS ORDERED: DICY10 PO (08:42)
[2017-10-29] MEDS ORDERED: ZOFR4TAB3 SL (08:42)
--- NOTE | 2017-10-29 08:42 | HHI.PR ---
Subjective Remarks Patient seen and examined today for follow-up on abdominal pain. Patient states that she is doing better. Pain is 50% improved. She is tolerating diet at this time. Vital signs are stable. Afebrile. Objective Vitals Vital Signs Date Time Temp Pulse Resp B/P (MAP) Pulse Ox O2 Delivery O2 Flow Rate FiO2 10/29/17 07:59 18 10/29/17 00:00 97.0 68 18 107/74 (85) 94 10/28/17 20:00 96.5 69 18 108/81 (90) 98 10/28/17 19:00 18 10/28/17 16:00 96.9 68 16 129/86 (100) 100 10/28/17 13:00 97.2 57 16 132/75 (94) 98 10/28/17 12:29 65 16 125/77 (93) 100 10/28/17 12:19 16 10/28/17 09:44 98.0 86 18 115/66 (82) 97 I/O 10/28/17 10/28/17 10/28/17 10/29/17 10/29/17 10/29/17 07:00 15:00 23:00 07:00 15:00 23:00 Intake Total 1000 ml 120 ml 280 ml Balance 1000 ml 120 ml 280 ml Intake Oral 120 ml 280 ml IV Total 1000 ml # Voids 2 # Bowel Movements 0 Result Diagram: 10/28/17 1040 10/28/17 1040 Objective Remarks GENERAL: Well-developed, well-nourished, in no acute distress. alert and orientated HEENT: Head is normocephalic without any lesions or masses noted. Facial features are symmetric. Eyes: Extraocular muscles are intact. Conjunctivae were clear. NECK: Supple without any masses. Trachea midline no deviation. No JVD, CARDIAC: Regular rhythm, regular rate. S1/S2 are heard. No murmurs gallops or rubs. LUNGS: Clear to auscultation bilaterally. No wheeze, rhonchi or rales. No use of accessory muscles on inspiration or expiration. ABDOMEN: Soft, nontender. Nondistended. Bowel sounds heard in all 4 quadrants. No organomegaly or masses. Negative rebound, negative guarding EXTREMITIES: No edema, pulses are equal bilaterally. No cyanosis or clubbing NEUROLOGY: Mood and affect appear appropriate. Cranial nerves II through XII grossly intact. Moving all extremities, speech is clear Urinary Catheter: No Vascular Central Line Catheter: No A/P Assessment and Plan Abdominal pain with nausea, vomiting, elevated lipase, resolved CT scan and ultrasound are unremarkable for any acute abnormality Discontinue IV fluids Advance diet as tolerated Triglyceride level is 119 Lipase level has returned to normal Continue pain control with Percocet, Bentyl. Discontinue Dilaudid Hypertension Home medications have been continued DVT prevention sequential compression devices Discharge Planning Discharge home in stable condition if tolerates diet and pain controlled Activity: Ad bjorn. Diet: Regular diet Medications per medication reconciliation Follow-up with primary medical doctor one week Ricki Mattson Oct 29, 2017 08:42
[2017-10-29] MEDS ORDERED: ESCITALOPRAM OXALATE 20 MG TAB PO SCH (09:00)
[2017-10-29] MEDS ORDERED: DILTIAZEM-CD 120 MG CAP ER PO SCH (09:00)
[2017-10-29] MEDS: oxyCODONE/ACETAMINOPHEN 10 MG/325 MG TAB PO PRN ×2 (09:15→15:21)
[2017-10-29] MEDS: DICYCLOMINE HCL 20 MG TAB PO SCH ×3 (09:15→17:21)
[2017-10-29] MEDS: SODIUM CHLORIDE 0.9% FLUSH 10 ML FLUSH IV FLUSH SCH (09:16)
[2017-10-29 11:50] VITALS: BP 105/60; PULSE 65; RESP 20; TEMP 97.2; O2SAT 98
[2017-10-29 15:50] VITALS: BP 110/63; PULSE 76; RESP 20; TEMP 97.6; O2SAT 98
[2017-10-29 16:21] VITALS: RESP 18
== END 2017-10-29 17:32 | disposition home or self-care (01) ==
LOC: PHED 09:37 → PHEDA 11:33 → PH3A 12:38
PROVIDERS: ADMIT Hospitalist; ATTEND Hospitalist
DX: K85.90 Acute pancreatitis without necrosis or infection, unspecified (principal); G89.29 Other chronic pain; I10 Essential (primary) hypertension; K21.9 Gastro-esophageal reflux disease without esophagitis; K58.1 Irritable bowel syndrome with constipation; K58.0 Irritable bowel syndrome with diarrhea; N80.9 Endometriosis, unspecified; F41.9 Anxiety disorder, unspecified; F32.9 Major depressive disorder, single episode, unspecified; Z79.899 Other long term (current) drug therapy
CPT/HCPCS: 76705; 80053; 81001; 83690; 84478; 85025; 87086; 96361; 96374; 96375; 96376; 99285; G0378; J1170; J2270; J2405; J7030

== ENCOUNTER 2017-11-01 22:04 | Emergency (ER) | payer OTHER ==
[~2017-11-01] VITALS: Ht 162.6 cm; Wt 62.4 kg
[~2017-11-01 22:04] MED LIST changes: +OXYC1TAB36 PO; -PERC10TA27 PO; -PREM0.622 PO; -PROM25SU8 PO; -PROZ40CA PO; +ZOFR4TAB3 SL
[2017-11-01 22:24] VITALS: BP 135/72; PULSE 75; RESP 18; TEMP 98; O2SAT 98
[2017-11-01] MEDS ORDERED: SODIUM CHLOR 0.9% 1000 ML INJ 1,000 ML IV SCH (22:41)
[2017-11-01] MEDS ORDERED: MORPHINE SULFATE 4 MG/ML INJ IV PUSH ONE (22:45)
[2017-11-01] MEDS ORDERED: ONDANSETRON HCL 4 MG/2 ML VIAL IVP ONE (22:45)
[2017-11-01] MEDS ORDERED: SODIUM CHLORIDE 0.9% FLUSH 10 ML FLUSH IV FLUSH PRN (22:45)
--- NOTE | 2017-11-01 23:15 | RADRPT ---
EXAM DATE/TIME: 11/01/2017 22:58 [facility] COMPARISON: CT ABDOMEN & PELVIS W/O CONTRAST, October 27, 2017, 13:59. INDICATIONS : Diffuse abdominal and back pain x 1 week. Nausea, vomiting and diarrhea. ORAL CONTRAST: No oral contrast ingested. RADIATION DOSE: 6.0 CTDIvol (mGy) MEDICAL HISTORY : Diverticulitis. Hypertension. Ulcers. SURGICAL HISTORY : Appendectomy. Hysterectomy. ENCOUNTER: Initial ACUITY: 1 week PAIN SCALE: 10/10 LOCATION: Diffuse abdomen. TECHNIQUE: Volumetric scanning of the abdomen and pelvis was performed. Using automated exposure control and ad justment of the mA and/or kV according to patient size, radiation dose was kept as low as reasonably achievable to obtain optimal diagnostic quality images. DICOM format image data is available electro nically for review and comparison. FINDINGS: LOWER LUNGS: The visualized lower lungs are clear. LIVER: Homogeneous density without lesion for noncontrast technique. There is no dilation of the biliary tr ee. No calcified gallstones. SPLEEN: Normal size without lesion. PANCREAS: Within normal limits. KIDNEYS: Normal in size and shape. There is no mass, stone, or hydronephrosis. ADRENAL GLANDS: Within normal limits. VASCULAR: There is no aortic aneurysm. BOWEL/MESENTERY: No dilated loops of small and large bowel. A mild amount of stool throughout the colon. ABDOMINAL WALL: Within normal limits. RETROPERITONEUM: There is no lymphadenopathy. BLADDER: No wall thickening or mass. REPRODUCTIVE: Hysterectomy. No evidence of free fluid. INGUINAL: There is no lymphadenopathy or hernia. MUSCULOSKELETAL: Within normal limits for patient age. CONCLUSION: Negative noncontrast CT abdomen/pelvis. Jerardo Machado MD on November 01, 2017 at 23:11 Board Certified Radiologist. This report was verified electronically.
[2017-11-01 23:31] LABS: AUTOMATED NEUTROPHIL # 2.7 TH/MM3 (1.8-7.7); BASOPHIL # 0.1 TH/MM3 (0-0.2); BILIRUBIN, URINE NEG (NEG); BLOOD, URINE NEG (NEG); EOSINOPHIL # 0.3 TH/MM3 (0-0.4); EOSINOPHIL % 4.7 % (0.0-4.0); GLUCOSE,URINE NEG (NEG); HEMATOCRIT 32.3 % (35.0-46.0); HEMOGLOBIN 11.1 GM/DL (11.6-15.3); KETONE, URINE NEG (NEG); LYMPH % 41.1 % (9.0-44.0); LYMPHOCYTE # 2.4 TH/MM3 (1.0-4.8); MEAN CELL VOLUME 89.9 FL (80.0-100.0); MEAN CORPUSCULAR HEMOGLOBIN 30.7 PG (27.0-34.0); MEAN CORPUSCULAR HGB CONC 34.2 % (32.0-36.0); MEAN PLATELET VOLUME 8.5 FL (7.0-11.0); MONO % 5.3 % (0.0-8.0); MONOCYTE # 0.3 TH/MM3 (0-0.9); NEUT % 47.9 % (16.0-70.0); NITRITE,URINE NEG (NEG); PH, URINE 5.5 (5.0-8.5); PLATELET COUNT 389 TH/MM3 (150-450); RED BLOOD COUNT 3.59 MIL/MM3 (4.00-5.30); RED CELL DISTRIBUTION WIDTH 12.6 % (11.6-17.2); URINE COLOR YELLOW (YELLW/STRAW); URINE LEUKOCYTE ESTERASE NEG (NEG); WHITE BLOOD COUNT 5.8 TH/MM3 (4.0-11.0)
[2017-11-01 23:37] LABS: BACTERIA, URINE MOD /hpf; MUCUS URINE FEW /lpf (OCC); SQUAMOUS EPITHELIAL CELL URINE 0-5 /hpf (0-5)
[2017-11-01 23:38] LABS: WBC, URINE 0-2 /hpf (0-5)
[2017-11-01 23:39] LABS: CHLORIDE 105 MEQ/L (98-107); SODIUM (NA) 139 MEQ/L (136-145)
[2017-11-01 23:42] LABS: CALCIUM 8.2 MG/DL (8.5-10.1)
[2017-11-01 23:43] LABS: ALBUMIN 3.7 GM/DL (3.4-5.0); BICARBONATE 26.2 MEQ/L (21.0-32.0); BLOOD UREA NITROGEN 13 MG/DL (7-18); GLUCOSE,RANDOM 97 MG/DL (74-106)
[2017-11-01 23:44] LABS: INTERNATIONAL NORMALIZED RATIO 1.1 RATIO; PROTHROMBIN TIME - PATIENT 10.7 SEC (9.8-11.6)
[2017-11-01 23:46] LABS: ALT (GPT) 18 U/L (10-53); AST (GOT) 15 U/L (15-37); CREATININE 0.57 MG/DL (0.50-1.00); GLOMERULAR FILTRATION RATE 112 ML/MIN (>89)
[2017-11-01 23:48] LABS: TOTAL BILIRUBIN ADULT LESS THAN 0.1 MG/DL (0.2-1.0); TOTAL PROTEIN 7.1 GM/DL (6.4-8.2)
[2017-11-01 23:49] LABS: ALKALINE PHOSPHATASE 51 U/L (45-117)
[2017-11-02] MEDS ORDERED: TRAM50 PO (00:56)
--- NOTE | 2017-11-02 00:56 | PD ---
HPI . Abdominal pain Chief Complaint: GI Complaint Time Seen by Provider: 22:33 Travel History International Travel<30 days: No Contact w/Intl Traveler<30days: No Traveled to known affect area: No History of Present Illness HPI 52-year-old female states she had a recent history of pancreatitis, sent home after admission to the hospital for same, notes diffuse abdominal pain radiating to bilateral lower flanks since her discharge. Patient denies any nausea vomiting diarrhea, fever chills sweats, vaginal discharge or bleeding. PFSH Past Medical History Narrative Medical Past medical history reviewed Anxiety: Yes Depression: Yes Cardiovascular Problems: Yes (HTN) Diminished Hearing: No Diverticulitis: Yes GERD: Yes Genitourinary: Yes (INTERSTITIAL CYSTITIS ) Hypertension: Yes Ulcer: Yes ?: Not Menopausal: Yes Past Surgical History Appendectomy: Yes Gynecologic Surgery: Yes (MULTIPLE LAPORASCOPIC SURGERIES FOR ENDOMETRIOSIS PRIOR TO HYST) Hysterectomy: Yes Other Surgery: Yes Social History Alcohol Use: No Tobacco Use: No Substance Use: No Allergies-Medications (Allergen,Severity, Reaction): Coded Allergies: diatrizoate meglumine (Unverified Allergy, Severe, ANAPHYLASIS, 10/28/17) gadobenic acid (Unverified Allergy, Severe, ANAPHYLASIS, 10/28/17) gadodiamide (Unverified Allergy, Severe, ANAPHYLASIS, 10/28/17) gadoteridol (Unverified Allergy, Severe, ANAPHYLASIS, 10/28/17) iodixanol (Unverified Allergy, Severe, ANAPHYLASIS, 10/28/17) iohexol (Unverified Allergy, Severe, ANAPHYLASIS, 10/28/17) moxifloxacin (Verified Allergy, Severe, Seizures, 10/28/17) penicillin G (Unverified Allergy, Severe, HIVES, 10/28/17) triamcinolone (Verified Allergy, Severe, Burning, 10/28/17) adhesive (Verified Allergy, Intermediate, Itching, 10/28/17) metoclopramide (Unverified Allergy, Mild, NERVOUSNESS, 10/28/17) prochlorperazine (Unverified Allergy, Mild, NERVOUSNESS, 10/28/17) promethazine (Unverified Allergy, Mild, VOMITING, 10/28/17) Iodinated Contrast- Oral and IV Dye (Verified Allergy, Unknown, 10/28/17) ketorolac (Verified Allergy, Unknown, 10/28/17) morphine (Unverified Adverse Reaction, Intermediate, HIVES, 10/28/17) Reported Meds & Prescriptions Reported Meds & Active Scripts Active Zofran Odt (Ondansetron Odt) 4 Mg Tab 4 Mg SL Q6HR PRN Bentyl (Dicyclomine HCl) 10 Mg Cap 20 Mg PO QID 7 Days Oxycodone-Acetaminophen 10-325 (Oxycodone HCl/Acetaminophen) 10 Mg-325 Mg Tablet 1 Tab PO Q6H PRN Reported Ativan (Lorazepam) 1 Mg Tab 1 Mg PO Q8H PRN Lexapro (Escitalopram Oxalate) 20 Mg Tab 20 Mg PO DAILY Nexium (Esomeprazole DR) 40 Mg Capdr 40 Mg PO DAILY Premarin (Estrogens Conjugated) 0.625 Mg Tab 0.625 Mg PO DAILY Cardizem CD 24 HR (Diltiazem CD 24 HR) 120 Mg Caper 120 Mg PO DAILY Narrative Medication Extensive allergy list reviewed Review of Systems Except as stated in HPI: all other systems reviewed are Neg General / Constitutional: No: Fever Eyes: No: Visual changes HENT: No: Headaches Cardiovascular: No: Chest Pain or Discomfort Respiratory: No: Shortness of Breath Gastrointestinal: Positive: Nausea, Abdominal Pain, No: Vomiting, Diarrhea Genitourinary: No: Urgency, Frequency, Dysuria, Hematuria Musculoskeletal: No: Pain Skin: No Rash Neurologic: No: Weakness Psychiatric: No: Depression Endocrine: No: Polydipsia Hematologic/Lymphatic: No: Easy Bruising Physical Exam Narrative GENERAL: Awake and alert oriented 3 no acute distress vital signs afebrile normal and stable. SKIN: Warm and dry. Color is normal diaphoresis and pallor. No jaundice HEAD: Atraumatic. Normocephalic. EYES: Pupils equal and round. No scleral icterus. No injection or drainage. ENT: No nasal bleeding or discharge. Mucous membranes pink and moist. NECK: Trachea midline. No JVD. Supple full range of motion CARDIOVASCULAR: Regular rate and rhythm. S1-S2 no murmurs rubs gallops RESPIRATORY: No accessory muscle use. Clear to auscultation. Breath sounds equal bilaterally. GASTROINTESTINAL: Abdomen soft, non-tender, nondistended. Hepatic and splenic margins not palpable. MUSCULOSKELETAL: Extremities without clubbing, cyanosis, or edema. No obvious deformities. NEUROLOGICAL: Awake and alert. No obvious cranial nerve deficits. Motor grossly within normal limits. Five out of 5 muscle strength in the arms and legs. Normal speech. PSYCHIATRIC: Appropriate mood and affect; insight and judgment normal. Data Data Last Documented VS Vital Signs Date Time Temp Pulse Resp B/P (MAP) Pulse Ox O2 Delivery O2 Flow Rate FiO2 11/01/17 22:24 98.0 75 18 135/72 (93) 98 Orders Orders Beta Hcg (Quant/Titer) (11/01/17 22:41) Complete Blood Count With Diff (11/01/17 22:41) Comprehensive Metabolic Panel (11/01/17 22:41) Lipase (11/01/17 22:41) Lactic Acid (11/01/17 22:41) Prothrombin Time / Inr (Pt) (11/01/17 22:41) Act Partial Throm Time (Ptt) (11/01/17 22:41) Urinalysis - C+S If Indicated (11/01/17 22:41) Iv Access Insert/Monitor (11/01/17 22:41) Ecg Monitoring (11/01/17 22:41) Oximetry (11/01/17 22:41) Morphine Inj (Morphine Inj) (11/01/17 22:45) Ondansetron Inj (Zofran Inj) (11/01/17 22:45) Sodium Chlor 0.9% 1000 Ml Inj (Ns 1000 M (11/01/17 22:41) Sodium Chloride 0.9% Flush (Ns Flush) (11/01/17 22:45) Ct Abd/Pel W/O Iv Contrast (11/01/17 ) Urine Culture (11/01/17 23:00) Tramadol (Ultram) (11/02/17 01:00) Labs Laboratory Tests Test 11/01/17 23:00 11/01/17 23:15 White Blood Count 5.8 TH/MM3 Red Blood Count 3.59 MIL/MM3 Hemoglobin 11.1 GM/DL Hematocrit 32.3 % Mean Corpuscular Volume 89.9 FL Mean Corpuscular Hemoglobin 30.7 PG Mean Corpuscular Hemoglobin Concent 34.2 % Red Cell Distribution Width 12.6 % Platelet Count 389 TH/MM3 Mean Platelet Volume 8.5 FL Neutrophils (%) (Auto) 47.9 % Lymphocytes (%) (Auto) 41.1 % Monocytes (%) (Auto) 5.3 % Eosinophils (%) (Auto) 4.7 % Basophils (%) (Auto) 1.0 % Neutrophils # (Auto) 2.7 TH/MM3 Lymphocytes # (Auto) 2.4 TH/MM3 Monocytes # (Auto) 0.3 TH/MM3 Eosinophils # (Auto) 0.3 TH/MM3 Basophils # (Auto) 0.1 TH/MM3 CBC Comment DIFF FINAL Differential Comment Prothrombin Time 10.7 SEC Prothromb Time International Ratio 1.1 RATIO Activated Partial Thromboplast Time 26.6 SEC Urine Collection Type CLEAN CATCH Urine Color YELLOW Urine Turbidity CLEAR Urine pH 5.5 Urine Specific [place] 1.020 Urine Protein NEG mg/dL Urine Glucose (UA) NEG mg/dL Urine Ketones NEG mg/dL Urine Occult Blood NEG Urine Nitrite NEG Urine Bilirubin NEG Urine Urobilinogen 0.2 MG/DL Urine Leukocyte Esterase NEG Urine WBC 0-2 /hpf Urine Squamous Epithelial Cells 0-5 /hpf Urine Bacteria MOD /hpf Urine Mucus FEW /lpf Microscopic Urinalysis Comment CULTURE INDICATED Blood Urea Nitrogen 13 MG/DL Creatinine 0.57 MG/DL Random Glucose 97 MG/DL Total Protein 7.1 GM/DL Albumin 3.7 GM/DL Calcium Level 8.2 MG/DL Alkaline Phosphatase 51 U/L Aspartate Amino Transf (AST/SGOT) 15 U/L Alanine Aminotransferase (ALT/SGPT) 18 U/L Total Bilirubin LESS THAN 0.1 MG/DL Sodium Level 139 MEQ/L Potassium Level 3.4 MEQ/L Chloride Level 105 MEQ/L Carbon Dioxide Level 26.2 MEQ/L Anion Gap 8 MEQ/L Estimat Glomerular Filtration Rate 112 ML/MIN Lipase 112 U/L Human Chorionic Gonadotropin, Quant LESS THAN 1 MIU/ML Lactic Acid Level 0.9 mmol/L MDM Medical Decision Making Medical Screen Exam Complete: Yes Emergency Medical Condition: Yes Medical Record Reviewed: Yes Differential Diagnosis Abdominal pain, pancreatitis Narrative Course Patient's labs are examinations reviewed, no significant abnormalities. CT abdomen and pelvis shows no acute abnormalities. No objective criteria to explain patient's complaint of pain. Recommend follow-up as outpatient Diagnosis Primary Impression: Abdominal pain Qualified Codes: R10.84 - Generalized abdominal pain Referrals: Patrizia Aguirre MD Patient Instructions: Abdominal Pain (ED), General Instructions Additional Instructions: Ultram 50 mg every 8 hours as needed for pain. Use sparingly. Recommend bland clear liquid diet advance slowly as tolerated. Follow-up with your doctor. 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 Return promptly for worsening Scripts Tramadol (Ultram) 50 Mg Tab 50 MG PO Q8H Y for PAIN, #10 TAB 0 Refills Prov: Amauri Ortiz MD 11/02/17 Disposition: 01 DISCHARGE HOME Condition: Stable Amauri Ortiz MD Nov 02, 2017 00:56
[2017-11-02] MEDS ORDERED: traMADol HCL 50 MG TAB PO ONE (01:00)
[2017-11-02 01:20] VITALS: BP 152/77
== END 2017-11-02 01:36 | disposition home or self-care (01) ==
LOC: PHED 22:04
DX: R10.84 Generalized abdominal pain (principal); F41.9 Anxiety disorder, unspecified; F32.9 Major depressive disorder, single episode, unspecified; I10 Essential (primary) hypertension; K21.9 Gastro-esophageal reflux disease without esophagitis
CPT/HCPCS: 74176; 80053; 81001; 83605; 83690; 84702; 85025; 85610; 85730; 87086; 96361; 96374; 96375; 99284; J2270; J2405; J7030